=== PATIENT | male | born 1960 | race Asian ===

== ENCOUNTER 2025-08-30 15:28 | Inpatient (IN) ==
[2025-08-30 16:18] LABS: Hematocrit (blood only) 40.2 % (42.0-52.0); Hemoglobin 12.9 g/dl (14.0-18.0); Immature Granulocytes # (auto) 0.08 K/uL (0.01-0.20); Immature Granulocytes % (auto) 0.7 %; Mean Corpuscular Hemoglobin 27.0 pg (25.0-34.0); Mean Corpuscular Volume 84.3 fL (80.0-100.0); Platelet Count 347 K/uL (130-400); RDW Standard Deviation 39.5 fL (36.4-46.3); Red Blood Count 4.77 M/uL (4.70-6.10); White Blood Count 12.19 K/ul (4.8-10.8)
--- NOTE | 2025-08-30 16:19 | Emergency Department Note ---
Impression & Plan Acute appendicitis with appendiceal abscess, Leukocytosis ED Provider Note HISTORY OF PRESENT ILLNESS: Patient is a 65-year-old male presenting with right lower quadrant abdominal pain and an abnormal CT scan outpatient. Patient reports he has been having pain in his lower abdomen for the last 10 days. He reports that initially started in his lower abdomen in the bilateral lower quadrants 10 days ago. He reports over the last 10 days that it has become more localized to his right lower quadrant. His only abdominal surgical history was bilateral inguinal hernia repairs. He denies any nausea or vomiting. He reports that he has been unable to do his normal activities secondary to significant pain with movement. He denies any fevers. He reports that he thought it was similar pain to his previous bouts of diverticulitis, and he had spare ciprofloxacin and Flagyl from those diverticulitis episodes and started taking the ciprofloxacin and Flagyl, twice daily starting 5 days ago. He states he went to his primary care provider and had blood work and an outpatient CT scan performed today and he was called by his doctor to present to the emergency department due to his ruptured appendix. Last p.o. intake was at 9:30 AM today. Currently complaining of sharp pain in the right lower quadrant that he rates a 7 out of 10. ROS: as above PHYSICAL EXAM: Constitutional: Patient appears in no acute distress. HENT: Head: Normocephalic and atraumatic. Eyes: EOMI, PERRL Mouth/Throat: Mucous membranes moist. Neck: Trachea midline. Neck supple. Cardiovascular: RRR, No murmurs, rubs or gallops. Intact distal pulses. Pulmonary/Chest: No respiratory distress. Breath sounds clear and equal bilaterally. No wheezes or rales. Abdominal: Abdomen soft, no rebound or guarding. RLQ TTP Musculoskeletal: No edema, tenderness or deformity noted. Skin: Warm and dry. No rash, erythema, pallor or cyanosis Psychiatric: Appropriate mood and affect for situation. Neurological: Alert and keenly responsive. CN II-XII grossly intact, moving all extremities equally and fully. MDM: - Vitals signs stable. - History obtained via patient. History as above. - Chronic conditions affecting care: HTN - Differential diagnoses include, but are not limited to: Aortic aneurysm; appendicitis; diverticulitis; ureteral calculi; abdominal abscess - Order placed for continuous cardiac monitoring. At this time, monitor showed rate of 65 bpm with normal sinus rhythm, per my interpretation. - External medical records reviewed. CT abdomen/pelvis with IV and with oral contrast obtained through the [employer] system on 08/30/2025 at 1330 was reviewed. Impression was read as "appendicitis complicated by contained rupture of the appendix with right lower quadrant abscess. Mildly dilated common bile duct." - Laboratory workup interpreted by myself showed leukocytosis (WBC 12.19); stable electrolytes; normal lactate; normal lipase; normal AST/ALT - UA negative for infection - Discussed case with general surgeon on-call, Dr. Conde, at 16:16. He is requesting that the images be pushed through from the [employer] system. This was done and he was able to review the images. He recommended continuation of IV antibiotics. Reports no need for surgery at this time. - IV zosyn ordered. - Discussion was had with case sealer about patient's case and need for admission - Dr. Conde reports patietn will be admitted to his service - Patient admitted to general surgery service for further evaluation and management. ASSESSMENT AND PLAN: Diagnosis: acute appendicitis with appendiceal abscess; leukocytosis Plan: admit Past Med/Surg History Problem List (Updated 08/30/25 @ 17:08 by Minerva Dawkins MD) Leukocytosis (Acute) Acute appendicitis with appendiceal abscess (Acute) History of colon polyps Hernia, inguinal, right S/P left inguinal hernia repair (10/06/21) Left inguinal hernia repair. Dr. Duarte 10/06/2021 Colon cancer screening Encounter for pre-operative examination Left inguinal hernia Medical History History of hypertension Constipation History of bloody stools Surgical History H/O right inguinal hernia repair (03/28/25) H/O colonoscopy (09/15/21) History of left inguinal hernia repair (10/06/21) History of endoscopic sinus surgery Family History Father Cancer Social History Smoking Status: Never smoker Tobacco Type: Cigarettes Second Hand Exposure: No; Do You Dip or Chew Tobacco: No; Hx Alcohol Use: Yes Alcohol type: wine Alcohol Intake Frequency: 4 or More x per/Week Alcohol Intake Frequency Comment: daily 1-2 glasses Hx Substance Use: No Preferred Language: Tajik Communication Ability: Effective Plastics Scientist Required: Yes Beliefs That Will Affect Care: None marital status: Current Living Situation: Spouse current occupational status: employed How many Children do You have: 2 Feels Safe at Home: Yes during the past year weight has: remained stable Assistive Devices: Glasses Allergies Allergies Allergy/AdvReac Type Severity Reaction Status Date / Time No Known Allergies Allergy Verified 08/23/25 08:25 Home Meds Home Medications Medication Instructions Recorded Confirmed ascorbic acid (vitamin C) 500 mg 500 mg PO DAILY 09/01/21 08/23/25 tablet calcium carbonate (Calcium 500) 500 mg PO Q2D 09/01/21 08/23/25 multivitamin (Daily Multi-Vitamin 1 tab PO DAILY 09/01/21 08/23/25 tablet) latanoprost 0.005 % eye drops 1 drp OPB HS 03/20/25 08/23/25 lubiprostone 24 mcg capsule 24 mcg PO BID 03/20/25 08/23/25 (Amitiza) Previous Rx's Medication Instructions Recorded peg 3350-electrolytes 236 240 ml PO Q10M #4,000 mL 06/17/25 gram-22.74 gram-6.74 gram-5.86 gram solution (Golytely) Results & Data (ED) Vital Signs Vital Signs - 24 hr 08/30/25 15:33 08/30/25 15:57 08/30/25 16:43 Temperature 36.7 C Temperature Source Temporal Artery Scan Pulse Rate 70 61 Pulse Rate from SpO2 Sensor Respiratory Rate 20 20 Blood Pressure 137/84 115/75 Blood Pressure Mean 101 100 Pulse Oximetry 99 99 Oxygen Delivery Method Room Air Room Air Sepsis Recent Fever Within 48 Hours No Sepsis New/Unexplained Change in Mental Status No Sepsis Action Taken by Nursing No Action Required 08/30/25 16:43 08/30/25 16:48 08/30/25 16:50 Temperature Temperature Source Pulse Rate 64 64 Pulse Rate from SpO2 Sensor 64 Respiratory Rate 15 Blood Pressure 115/75 Blood Pressure Mean 100 Pulse Oximetry 98 Oxygen Delivery Method Sepsis Recent Fever Within 48 Hours Sepsis New/Unexplained Change in Mental Status Sepsis Action Taken by Nursing Laboratory Data 08/30/25 15:50 08/30/25 15:50 Lab Results 08/30/25 08/30/25 08/30/25 Range/Units 15:50 16:10 16:44 WBC 12.19 H (4.8-10.8) K/ul RBC 4.77 (4.70-6.10) M/uL Hgb 12.9 L (14.0-18.0) g/dl Hct 40.2 L (42.0-52.0) % MCV 84.3 (80.0-100.0) fL MCH 27.0 (25.0-34.0) pg MCHC 32.1 (32.0-36.0) g/dL RDW Std Deviation 39.5 (36.4-46.3) fL RDW Coeff of Day 12.8 (11.5-14.5) % Plt Count 347 (130-400) K/uL MPV 9.2 L (9.4-12.4) fL Immature Gran % (Auto) 0.7 % Neut % (Auto) 72.1 % Lymph % (Auto) 18.4 % [place] % (Auto) 7.6 % Eos % (Auto) 0.7 % Baso % (Auto) 0.5 % Neut # (Auto) 8.79 H (1.40-6.50) K/uL Lymph # (Auto) 2.24 (1.20-3.40) K/uL [place] # (Auto) 0.93 H (0.11-0.59) K/uL Eos # (Auto) 0.09 (0.00-0.50) K/uL Baso # (Auto) 0.06 (0.00-0.20) K/uL Immature Gran # (Auto) 0.08 (0.01-0.20) K/uL Sodium 132 L (136-145) mmol/L Potassium 4.1 (3.5-5.1) mmol/L Chloride 99 (98-107) mmol/L Carbon Dioxide 25 (21-32) mmol/L Anion Gap 8 (3-11) BUN 10 (6-23) mg/dl Creatinine 0.85 (0.6-1.4) mg/dl Est Cr Clr Drug Dosing 74.7 ml/min eGFR 97.64 BUN/Creatinine Ratio 11.8 (10-20) Glucose 100 H (70-99(Fasting)) mg/dl Lactate 0.8 (0.4-2.0) mmol/L Calcium 9.0 (8.6-10.3) mg/dl Total Bilirubin 0.7 (0.2-1.0) mg/dl AST 13 (13-39) U/L ALT 11 (7-52) U/L Alkaline Phosphatase 79 (34-104) U/L Total Protein 7.6 (6.0-8.3) gm/dl Albumin 3.7 (3.4-5.0) gm/dl Globulin 3.9 (2.5-4.0) gm/dl Albumin/Globulin Ratio 0.9 (0.9-2) Lipase 26 (11-82) U/L Urine Color Yellow Urine Appearance Clear (Clear) Urine pH 5.5 (4.5-7.5) Ur Specific [place] <= 1.005 (1.000-1.030) Urine Protein Negative (Negative) Urine Glucose (UA) Negative (Negative) Urine Ketones Negative (Negative) Urine Blood 1+ H (Negative) Urine Nitrite Negative (Negative) Urine Bilirubin Negative (Negative) Urine Urobilinogen Negative (Negative) Ur Leukocyte Esterase Negative (Negative) Urine RBC 0-2 (0-2) /hpf Urine WBC 6-10 H (0-5) /hpf Ur Epithelial Cells 0-2 (0-2) /hpf Urine Bacteria None Seen (None Seen) Urine Comment Administered Medications Discontinued Medications Piperacillin Sod/Tazobactam Sod (Zosyn) 4.5 gm in 100 mls @ 200 mls/hr IV NOW ONE; Protocol Stop: 08/30/25 16:40 Last Infusion: 08/30/25 17:26 Dose: Infused Documented By: Admin: 08/30/25 16:36 Dose: 200 mls/hr Documented By: KRC Discharge Plan Visit Data Chief Complaint: Abdominal Pain Stated Complaint: APPENDICITIS DCO REFERRAL ED Provider: Minerva Dawkins Discharge Problem: Acute appendicitis with appendiceal abscess, Leukocytosis Condition: Fair Forms Stand Alone Forms: [facility] Prescriptions Prescriptions: No Action peg 3350-electrolytes [Golytely] 236-22.74-6.74 -5.86 gram recon soln 240 ml PO Q10M Qty: 4000 0RF Rx Instructions: Take per split dose instructions ascorbic acid (vitamin C) 500 mg tablet 500 mg PO DAILY multivitamin [Daily Multi-Vitamin] Tablet 1 tab PO DAILY calcium carbonate [Calcium 500] 500 mg calcium (1,250 mg) tablet 500 mg PO Q2D latanoprost 0.005 % drops 1 drp OPB HS lubiprostone [Amitiza] 24 mcg capsule 24 mcg PO BID Referrals Referrals: Elina Guerrero MD [Primary Care Provider] -
[2025-08-30] MEDS: PIPERACILLIN/TAZOBACTAM 4.5 GM/100 ML BAG IV ONE (16:36)
[2025-08-30 16:56] LABS: Alanine Aminotransferase 11.0 U/L (7-52); Albumin Globulin Ratio 0.9 (0.9-2); Albumin Level 3.7 gm/dl (3.4-5.0); Alkaline Phosphatase 79.0 U/L (34-104); Anion Gap 8.0 (3-11); Bilirubin,Total 0.7 mg/dl (0.2-1.0); Blood Urea Nitrogen 10.0 mg/dl (6-23); Calcium 9.0 mg/dl (8.6-10.3); Carbon Dioxide 25.0 mmol/L (21-32); Chloride 99.0 mmol/L (98-107); Creatinine Clr Calc Pharmacy 74.7 ml/min; Globulin 3.9 gm/dl (2.5-4.0); Glucose 100.0 mg/dl (70-99(Fasting)); Lipase 26.0 U/L (11-82); Potassium 4.1 mmol/L (3.5-5.1); Sodium 132.0 mmol/L (136-145); Total Protein 7.6 gm/dl (6.0-8.3)
[2025-08-30 17:11] LABS: Appearance Urine Clear (Clear); Glucose Urine UA Negative (Negative)
[2025-08-30 17:34] LABS: Epithelial Cell Urine 0-2 /hpf (0-2)
--- NOTE | 2025-08-30 17:34 | History & Physical Report ---
Date of Service August 30, 2025 Assessment & Plan (1) Acute appendicitis with appendiceal abscess: Plan: Acute perforated appendicitis with abscess/phlegmon. Patient will be admitted for bowel rest and IV antibiotics Will discuss with IR on Tuesday, may need further imaging Discussed possibility of laparoscopic drainage versus attempted appendectomy if fails to improve or clinically worsens Would recommend interval appendectomy if response to nonoperative management. (2) H/O right inguinal hernia repair: (3) S/P left inguinal hernia repair: History of Present Illness Chief Complaint: Abdominal pain Primary Care Provider: Elina Guerrero MD Presents to the emergency department with 10 days of abdominal pain. Initially generalized pain, then migrated to the right lower quadrant. No similar episodes in the past. He did have some generalized abdominal pain a few months ago and was prescribed Cipro/Flagyl for possible diverticulitis, but the pain resolved and he never took these. He began to take these for the past few days. No fevers, was seen by PCP and CT scan was ordered and performed at [facility]. This showed a perforated appendicitis with a 4 x 2 cm abscess. He was referred to the emergency department. Prior open left and right inguinal hernias, most recently open right inguinal hernia by Dr. Clements in April. No other abdominal surgeries. Recent colonoscopy with some small benign polyps. He currently has some mild pain, but overall feels okay. No allergies, otherwise healthy. Allergies Allergy/AdvReac Type Severity Reaction Status Date / Time No Known Allergies Allergy Verified 08/23/25 08:25 Home Medications Medication Instructions Recorded Confirmed Type ascorbic acid (vitamin C) 500 mg 500 mg PO DAILY 09/01/21 08/23/25 History tablet calcium carbonate (Calcium 500) 500 mg PO Q2D 09/01/21 08/23/25 History multivitamin (Daily Multi-Vitamin 1 tab PO DAILY 09/01/21 08/23/25 History tablet) latanoprost 0.005 % eye drops 1 drp OPB HS 03/20/25 08/23/25 History lubiprostone 24 mcg capsule 24 mcg PO BID 03/20/25 08/23/25 History (Amitiza) peg 3350-electrolytes 236 240 ml PO Q10M #4,000 mL 06/17/25 08/23/25 Rx gram-22.74 gram-6.74 gram-5.86 gram solution (Golytely) Past Med/Surg History Problem List (Updated 08/30/25 @ 17:08 by Minerva Dawkins MD) Leukocytosis (Acute) Acute appendicitis with appendiceal abscess (Acute) History of colon polyps Hernia, inguinal, right S/P left inguinal hernia repair (10/06/21) Left inguinal hernia repair. Dr. Duarte 10/06/2021 Colon cancer screening Encounter for pre-operative examination Left inguinal hernia Medical History History of hypertension Constipation History of bloody stools Surgical History H/O right inguinal hernia repair (03/28/25) H/O colonoscopy (09/15/21) History of left inguinal hernia repair (10/06/21) History of endoscopic sinus surgery Family History Father Cancer Social History Smoking Status: Never smoker Tobacco Type: Cigarettes Second Hand Exposure: No; Do You Dip or Chew Tobacco: No; Hx Alcohol Use: Yes Alcohol type: wine Alcohol Intake Frequency: 4 or More x per/Week Alcohol Intake Frequency Comment: daily 1-2 glasses Hx Substance Use: No Preferred Language: Nauruan Communication Ability: Effective Janitorial Tech Required: Yes Beliefs That Will Affect Care: None marital status: Current Living Situation: Spouse current occupational status: employed How many Children do You have: 2 Feels Safe at Home: Yes during the past year weight has: remained stable Assistive Devices: Glasses Review of Systems Review of Systems: All systems reviewed & are unremarkable except as noted in HPI & below Physical Exam Constitutional: WD/WN, vitals as above Respiratory: normal respiratory effort, lungs clear to auscultation Cardiovascular: RRR, no murmur, no edema Gastrointestinal (Abdomen): Inspection/Auscultation: + abdominal surgical scar Percussion/Palpation: + abdomen tender (Mild tenderness to palpation in RLQ, no guarding or rebound) and abdomen soft; no guarding, abdomen not rigid and no hernia Results & Data Results & Data Vital Signs (Past 12 Hours) Vital Signs Temp Pulse Resp BP Pulse Ox O2 Del Method 08/30/25 16:50 64 08/30/25 16:48 64 15 98 08/30/25 16:43 115/75 08/30/25 16:43 115/75 08/30/25 15:57 61 20 99 Room Air 08/30/25 15:33 36.7 C 70 20 137/84 99 Room Air Laboratory Results Laboratory Results - last 24 hr 08/30/25 08/30/25 08/30/25 15:50 16:10 16:44 WBC 12.19 H RBC 4.77 Hgb 12.9 L Hct 40.2 L MCV 84.3 MCH 27.0 MCHC 32.1 RDW Std Deviation 39.5 RDW Coeff of Day 12.8 Plt Count 347 MPV 9.2 L Immature Gran % (Auto) 0.7 Neut % (Auto) 72.1 Lymph % (Auto) 18.4 [place] % (Auto) 7.6 Eos % (Auto) 0.7 Baso % (Auto) 0.5 Neut # (Auto) 8.79 H Lymph # (Auto) 2.24 [place] # (Auto) 0.93 H Eos # (Auto) 0.09 Baso # (Auto) 0.06 Immature Gran # (Auto) 0.08 Sodium 132 L Potassium 4.1 Chloride 99 Carbon Dioxide 25 Anion Gap 8 BUN 10 Creatinine 0.85 Est Cr Clr Drug Dosing 74.7 eGFR 97.64 BUN/Creatinine Ratio 11.8 Glucose 100 H Lactate 0.8 Calcium 9.0 Total Bilirubin 0.7 AST 13 ALT 11 Alkaline Phosphatase 79 Total Protein 7.6 Albumin 3.7 Globulin 3.9 Albumin/Globulin Ratio 0.9 Lipase 26 Urine Color Yellow Urine Appearance Clear Urine pH 5.5 Ur Specific [place] <= 1.005 Urine Protein Negative Urine Glucose (UA) Negative Urine Ketones Negative Urine Blood 1+ H Urine Nitrite Negative Urine Bilirubin Negative Urine Urobilinogen Negative Ur Leukocyte Esterase Negative Urine RBC Pending Urine WBC Pending Ur Epithelial Cells Pending Urine Bacteria Pending Urine Comment Diagnostic Findings CT scan personally viewed and interpreted and agree with the assessment of a perforated appendicitis with phlegmon/abscess approximately 4 x 2 cm in size. No free air. No bowel obstruction. Code Status & VTE Plan VTE Prophylaxis Plan VTE Prophylaxis will be ordered: Yes PG Care Time/CCT Total # of Minutes Spent Total Time Spent with Patient: Total time spent is greater than 50% in coordination of care (as documented) at patient's floor/unit and/or counseling patient: Coding Level of Care Code 51968 INT INP/OBS CARE 2MIN Diagnoses Acute appendicitis with appendiceal abscess K35.33 H/O right inguinal hernia repair Z98.890; Z87.19 S/P left inguinal hernia repair Z98.890; Z87.19
[2025-08-30] MEDS ORDERED: ONDANSETRON INJ 2 MG/ML 2 ML VIAL IV PRN (21:03)
[2025-08-30] MEDS ORDERED: diphenhydrAMINE 50 MG/ML VIAL IV PRN (21:03)
[2025-08-30] MEDS ORDERED: ACETAMINOPHEN 1,000 MG/100 ML VIAL IV PRN (21:03)
[2025-08-30] MEDS ORDERED: MoRPHine SULFATE 4 MG/ML 1 ML CARP\\VIAL IV PRN (21:03)
[2025-08-30] MEDS: KETOROLAC TROMETHAMINE 15 MG/ML VIAL IV PRN (21:31)
[2025-08-30] MEDS: HEPARIN SOD 5,000 UNIT/0.5 ML VIAL SQ SCH (21:31)
[2025-08-30] MEDS: LACTATED RINGER'S 1,000 ML IV SCH (21:39)
[2025-08-30] MEDS: metroNIDAZOLE 500 MG/100 ML BAG IV SCH (21:40)
[2025-08-30] MEDS: CIPROFLOXACIN / D5W 400 MG/200 ML BAG IV SCH (22:43)
[2025-08-31 06:47] LABS: Hematocrit (blood only) 34.3 % (42.0-52.0); Hemoglobin 11.4 g/dl (14.0-18.0); Immature Granulocytes # (auto) 0.05 K/uL (0.01-0.20); Immature Granulocytes % (auto) 0.8 %; Mean Corpuscular Hemoglobin 27.9 pg (25.0-34.0); Mean Corpuscular Volume 83.9 fL (80.0-100.0); Platelet Count 331 K/uL (130-400); RDW Standard Deviation 38.5 fL (36.4-46.3); Red Blood Count 4.09 M/uL (4.70-6.10); White Blood Count 6.00 K/ul (4.8-10.8)
[2025-08-31 07:22] LABS: Albumin Level 3.1 gm/dl (3.4-5.0); Anion Gap 8.0 (3-11); Bilirubin,Total 0.5 mg/dl (0.2-1.0); Calcium 8.6 mg/dl (8.6-10.3); Carbon Dioxide 24.0 mmol/L (21-32); Chloride 105.0 mmol/L (98-107); Potassium 3.7 mmol/L (3.5-5.1); Sodium 137.0 mmol/L (136-145)
[2025-08-31 07:28] LABS: Alanine Aminotransferase 8.0 U/L (7-52); Albumin Globulin Ratio 1.0 (0.9-2); Alkaline Phosphatase 62.0 U/L (34-104); Blood Urea Nitrogen 12.0 mg/dl (6-23); Creatinine Clr Calc Pharmacy 102.0 ml/min; Globulin 3.0 gm/dl (2.5-4.0); Glucose 96.0 mg/dl (70-99(Fasting)); Total Protein 6.1 gm/dl (6.0-8.3)
--- NOTE | 2025-08-31 11:54 | Surgery Progress Note ---
Date of Service August 31, 2025 Assessment & Plan (1) Acute appendicitis with appendiceal abscess: Plan: Acute perforated appendicitis with abscess/phlegmon. Continue IV antibiotics Advance to clear liquid diet Will discuss with IR on Tuesday, may need further imaging Discussed possibility of laparoscopic drainage versus attempted appendectomy if fails to improve or clinically worsens Would recommend interval appendectomy if good response to nonoperative management. (2) H/O right inguinal hernia repair: (3) S/P left inguinal hernia repair: Admission and Anticipated Discharge Date Admission Date: August 30, 2025 Subjective Admitted with perforated appendicitis with phlegmon/abscess approximately 4 cm in size. Feeling much better, still little bit of pain. Physical Exam Constitutional: WD/WN, vitals as above Respiratory: normal respiratory effort, lungs clear to auscultation Cardiovascular: RRR, no murmur, no edema Gastrointestinal (Abdomen): Inspection/Auscultation: + abdominal surgical scar Percussion/Palpation: + abdomen tender (Mild tenderness to palpation in RLQ, no guarding or rebound, improved) and abdomen soft; no guarding, abdomen not rigid and no hernia Results & Data Vital Signs (Past 12 Hours) Vital Signs Temp Pulse Resp BP Pulse Ox O2 Del Method 08/31/25 07:22 37.1 C 59 L 18 114/75 98 Room Air Laboratory Results Laboratory Results - last 24 hr 08/30/25 08/30/25 08/30/25 15:50 16:10 16:44 WBC 12.19 H RBC 4.77 Hgb 12.9 L Hct 40.2 L MCV 84.3 MCH 27.0 MCHC 32.1 RDW Std Deviation 39.5 RDW Coeff of Day 12.8 Plt Count 347 MPV 9.2 L Immature Gran % (Auto) 0.7 Neut % (Auto) 72.1 Lymph % (Auto) 18.4 [place] % (Auto) 7.6 Eos % (Auto) 0.7 Baso % (Auto) 0.5 Neut # (Auto) 8.79 H Lymph # (Auto) 2.24 [place] # (Auto) 0.93 H Eos # (Auto) 0.09 Baso # (Auto) 0.06 Immature Gran # (Auto) 0.08 Sodium 132 L Potassium 4.1 Chloride 99 Carbon Dioxide 25 Anion Gap 8 BUN 10 Creatinine 0.85 Est Cr Clr Drug Dosing 74.7 eGFR 97.64 BUN/Creatinine Ratio 11.8 Glucose 100 H Lactate 0.8 Calcium 9.0 Total Bilirubin 0.7 AST 13 ALT 11 Alkaline Phosphatase 79 Total Protein 7.6 Albumin 3.7 Globulin 3.9 Albumin/Globulin Ratio 0.9 Lipase 26 Urine Color Yellow Urine Appearance Clear Urine pH 5.5 Ur Specific [place] <= 1.005 Urine Protein Negative Urine Glucose (UA) Negative Urine Ketones Negative Urine Blood 1+ H Urine Nitrite Negative Urine Bilirubin Negative Urine Urobilinogen Negative Ur Leukocyte Esterase Negative Urine RBC 0-2 Urine WBC 6-10 H Ur Epithelial Cells 0-2 Urine Bacteria None Seen Urine Comment 08/31/25 06:22 WBC 6.00 RBC 4.09 L Hgb 11.4 L Hct 34.3 L MCV 83.9 MCH 27.9 MCHC 33.2 RDW Std Deviation 38.5 RDW Coeff of Day 12.5 Plt Count 331 MPV 9.2 L Immature Gran % (Auto) 0.8 Neut % (Auto) 57.2 Lymph % (Auto) 29.3 [place] % (Auto) 9.5 Eos % (Auto) 2.5 Baso % (Auto) 0.7 Neut # (Auto) 3.43 Lymph # (Auto) 1.76 [place] # (Auto) 0.57 Eos # (Auto) 0.15 Baso # (Auto) 0.04 Immature Gran # (Auto) 0.05 Sodium 137 Potassium 3.7 Chloride 105 Carbon Dioxide 24 Anion Gap 8 BUN 12 Creatinine 0.80 Est Cr Clr Drug Dosing 102.0 eGFR 99.44 BUN/Creatinine Ratio 15.0 Glucose 96 Lactate Calcium 8.6 Total Bilirubin 0.5 AST 11 L ALT 8 Alkaline Phosphatase 62 Total Protein 6.1 Albumin 3.1 L Globulin 3.0 Albumin/Globulin Ratio 1.0 Lipase Urine Color Urine Appearance Urine pH Ur Specific [place] Urine Protein Urine Glucose (UA) Urine Ketones Urine Blood Urine Nitrite Urine Bilirubin Urine Urobilinogen Ur Leukocyte Esterase Urine RBC Urine WBC Ur Epithelial Cells Urine Bacteria Urine Comment PG Care Time/CCT Total # of Minutes Spent Total Time Spent with Patient: Total time spent is greater than 50% in coordination of care (as documented) at patient's floor/unit and/or counseling patient: Coding Level of Care Code 99515 SUB INP/OBS CARE 2/35MIN Diagnoses Acute appendicitis with appendiceal abscess K35.33 H/O right inguinal hernia repair Z98.890; Z87.19 S/P left inguinal hernia repair Z98.890; Z87.19
[2025-09-01] MEDS ORDERED: INFLUENZA VACC TS2025-26(6m+)/PF (IIV3) 0.5mL Syr IM ONE (09:03)
[2025-09-01 09:25] LABS: Hematocrit (blood only) 37.4 % (42.0-52.0); Hemoglobin 12.0 g/dl (14.0-18.0); Immature Granulocytes # (auto) 0.07 K/uL (0.01-0.20); Immature Granulocytes % (auto) 1.0 %; Mean Corpuscular Hemoglobin 26.9 pg (25.0-34.0); Mean Corpuscular Volume 83.9 fL (80.0-100.0); Platelet Count 367 K/uL (130-400); RDW Standard Deviation 38.1 fL (36.4-46.3); Red Blood Count 4.46 M/uL (4.70-6.10); White Blood Count 7.01 K/ul (4.8-10.8)
--- NOTE | 2025-09-01 09:58 | Surgery Progress Note ---
Date of Service September 01, 2025 Assessment & Plan (1) Acute appendicitis with appendiceal abscess: Plan: Acute perforated appendicitis with abscess/phlegmon. Continue IV antibiotics Advance to full liquid diet if tolerates clear liquid diet for lunch Discussed possibility of laparoscopic drainage versus attempted appendectomy if fails to improve or clinically worsens Would recommend interval appendectomy if good response to nonoperative management. (2) H/O right inguinal hernia repair: (3) S/P left inguinal hernia repair: Admission and Anticipated Discharge Date Admission Date: August 30, 2025 Subjective Admitted with perforated appendicitis with phlegmon/abscess approximately 4 cm in size. Feeling much better. Minimal pain. Tolerated clear liquids, however felt a little gassy afterwards, did not take the tray this morning. Physical Exam Constitutional: WD/WN, vitals as above Respiratory: normal respiratory effort, lungs clear to auscultation Cardiovascular: RRR, no murmur, no edema Gastrointestinal (Abdomen): Inspection/Auscultation: + abdominal surgical scar Percussion/Palpation: + abdomen tender (Mild tenderness to palpation in RLQ, no guarding or rebound, improved) and abdomen soft; no guarding, abdomen not rigid and no hernia Results & Data Vital Signs (Past 12 Hours) Vital Signs Temp Pulse Resp BP Pulse Ox O2 Del Method 09/01/25 07:00 36.8 C 60 18 136/85 97 Room Air 08/31/25 23:47 37.0 C 58 L 18 134/83 96 Room Air Laboratory Results Laboratory Results - last 24 hr 09/01/25 09:07 WBC 7.01 RBC 4.46 L Hgb 12.0 L Hct 37.4 L MCV 83.9 MCH 26.9 MCHC 32.1 RDW Std Deviation 38.1 RDW Coeff of Day 12.5 Plt Count 367 MPV 9.1 L Immature Gran % (Auto) 1.0 Neut % (Auto) 62.6 Lymph % (Auto) 26.8 [place] % (Auto) 7.6 Eos % (Auto) 1.3 Baso % (Auto) 0.7 Neut # (Auto) 4.39 Lymph # (Auto) 1.88 [place] # (Auto) 0.53 Eos # (Auto) 0.09 Baso # (Auto) 0.05 Immature Gran # (Auto) 0.07 PG Care Time/CCT Total # of Minutes Spent Total Time Spent with Patient: Total time spent is greater than 50% in coordination of care (as documented) at patient's floor/unit and/or counseling patient: Coding Level of Care Code 49359 SUB INP/OBS CARE 2MIN Diagnoses Acute appendicitis with appendiceal abscess K35.33 H/O right inguinal hernia repair Z98.890; Z87.19 S/P left inguinal hernia repair Z98.890; Z87.19
[2025-09-01] MEDS ORDERED: Nursing to Pharmacy Communication SCH (22:15)
[2025-09-01 23:18] VITALS: O2SAT 96
[2025-09-02 06:33] LABS: Hematocrit (blood only) 34.7 % (42.0-52.0); Hemoglobin 11.7 g/dl (14.0-18.0); Immature Granulocytes # (auto) 0.06 K/uL (0.01-0.20); Immature Granulocytes % (auto) 0.8 %; Mean Corpuscular Hemoglobin 27.9 pg (25.0-34.0); Mean Corpuscular Volume 82.8 fL (80.0-100.0); Platelet Count 388 K/uL (130-400); RDW Standard Deviation 37.2 fL (36.4-46.3); Red Blood Count 4.19 M/uL (4.70-6.10); White Blood Count 7.49 K/ul (4.8-10.8)
[2025-09-02 07:09] LABS: Alanine Aminotransferase 7.0 U/L (7-52); Albumin Globulin Ratio 1.0 (0.9-2); Albumin Level 3.0 gm/dl (3.4-5.0); Alkaline Phosphatase 53.0 U/L (34-104); Anion Gap 8.0 (3-11); Bilirubin,Total 0.4 mg/dl (0.2-1.0); Blood Urea Nitrogen 6.0 mg/dl (6-23); Calcium 8.6 mg/dl (8.6-10.3); Carbon Dioxide 25.0 mmol/L (21-32); Chloride 107.0 mmol/L (98-107); Creatinine Clr Calc Pharmacy 106.0 ml/min; Globulin 2.9 gm/dl (2.5-4.0); Glucose 95.0 mg/dl (70-99(Fasting)); Potassium 3.7 mmol/L (3.5-5.1); Sodium 140.0 mmol/L (136-145); Total Protein 5.9 gm/dl (6.0-8.3)
[2025-09-02 08:05] VITALS: BP 142/89; PULSE 58; RESP 16; TEMP 98.4
--- NOTE | 2025-09-02 09:56 | Surgery Progress Note ---
Date of Service September 02, 2025 Assessment & Plan (1) Acute appendicitis with appendiceal abscess: Plan: Pt here with abdominal pain. outpt CT scan showed concern for perforated appendicitis w/ 4cm phlegmon WBC 7.4. vitals stable, afebrile pt clinically feels better. tolerating a diet, no n/v. pain improving discussed CT scan with IR today, they stated its not well formed and more phlegmon so no plans to drain today. recommended considering outpt CT scan to see if it matures in week or so if indiciated Will resume patient back on a diet Consideration to discharge on oral abx course possible Admission and Anticipated Discharge Date Admission Date: August 30, 2025 Supervising Physician Co-Signing Physician Notes Patient seen and examined, labs reviewed, agree with above. Admitted with perforated appendicitis with phlegmon/abscess. Responding to IV antibiotics. Pain is improving, minimal this morning. He has tolerated a full liquid diet. Reviewed with IR, feel this is more of a phlegmon than abscess. Minimal to no tenderness to palpation in the right lower quadrant. Afebrile with stable vi tals. WBC remains normal. Will advance to low fiber diet. Transition to oral antibiotics and discharge later this afternoon. Continue course of at least 2 weeks of antibiotics. He should have a CT scan of the abdomen and pelvis with IV and oral contrast prior to see me in the clinic prior to the antibiotics completing. Return precautions given, call with questions or concerns. Subjective Patient feeling better. Reports pain 2-3/10. Passing gas, small BMs. Tolerating fulls, no n/v. Physical Exam Physical Exam: awake/alert, no distress Gastrointestinal (Abdomen): Inspection/Auscultation: abdomen not distended Percussion/Palpation: abdomen soft; abdomen nontender Results & Data Vital Signs (Past 12 Hours) Vital Signs Temp Pulse Resp BP Pulse Ox O2 Del Method 09/02/25 08:05 98.4 F 58 L 16 142/89 H 96 Room Air 09/01/25 23:00 99.0 F 60 18 139/81 96 Room Air PG Care Time/CCT Total # of Minutes Spent Total Time Spent with Patient: Total time spent is greater than 50% in coordination of care (as documented) at patient's floor/unit and/or counseling patient: Coding Level of Care Code 73388 SUB INP/OBS CARE 12/08MIN Diagnoses Acute appendicitis with appendiceal abscess K35.33
--- NOTE | 2025-09-03 13:07 | Discharge Summary ---
Date of Service September 03, 2025 Admission HPI Per Admitting Provider Presents to the emergency department with 10 days of abdominal pain. Initially generalized pain, then migrated to the right lower quadrant. No similar episodes in the past. He did have some generalized abdominal pain a few months ago and was prescribed Cipro/Flagyl for possible diverticulitis, but the pain resolved and he never took these. He began to take these for the past few days. No fevers, was seen by PCP and CT scan was ordered and performed at [facility]. This showed a perforated appendicitis with a 4 x 2 cm abscess. He was referred to the emergency department. Prior open left and right inguinal hernias, most recently open right inguinal hernia by Dr. Clements in April. No other abdominal surgeries. Recent colonoscopy with some small benign polyps. He currently has some mild pain, but overall feels okay. No allergies, otherwise healthy. Principal Diagnosis perforated appendicitis Discharge Exam awake/alert, no distress Respiratory normal respiratory effort Gastrointestinal (Abdomen) Inspection/Auscultation: abdomen not distended Percussion/Palpation: abdomen soft; abdomen nontender Discharge Data Allergies Allergy/AdvReac Type Severity Reaction Status Date / Time No Known Allergies Allergy Verified 08/23/25 08:25 Consultations 08/30/25 17:08 Consult General Surgery Routine ED Decision to Admit Stat Hospital Course (1) Acute appendicitis with appendiceal abscess: This is a 65yM with no significant PMH who presented to the [facility] on 08/30 with abdominal pain and a CT a/p showering perforated appendicitis with 4cm phlegmon/abscess. The patient's WBC 12. Initially patient on bowel rest with IVF. He was started on IV abx (cipro/flagyl). Patient's WBC normalized during his stay and vitals remained stable without any fevers. His diet was slowly advanced as tolerated. When IR was in house they were asked to review patient's CT scan for possible aspiration/drainage of fluid collection. Given its smaller size and not well organized appearance, more compatible with a phlegmon, they deferred on draining it during this admission. On 09/02 the patient's wbc normal, pain much improved, and diet tolerated. He was stable for discharge to home with instructions to complete a course of oral abx. He was slated for an outpatient CT scan with follow up in 1 week to eval the collection to ensure it continued to improve. Total Time Total Time Spent Total Time Spent (In Minutes): 15 Discharge Plan Discharge Items Patient Disposition: Home - Self-Care Reason For Visit: PERFORATED APPENDICITIS WITH ABSCESS Discharge Diagnosis: perforated appendicitis Condition on Discharge: Fair Activity: Per Instructions section Lifting: Gradually increase as tolerated Bathing: No limitations Exercise/Sports: Gradually increase as tolerated Driving/Machine Use: no driving if taking any narcotics for pain Non-emergency contact: Surgeon Call non-emergency contact if: you have any medication questions, your pain is not controlled, you have a fever, your temperature is above 101.5, your wound has increased redness, your wound has increased drainage and your wound pain has increased Follow-up/Referrals: Rj Conde DO, FACS [Physician] - 09/12/25 9:00 am (Please call to schedule follow up in the office in about 10 days time. please have a CT scan performed the day prior to your appointment) Elina Guerrero MD [Primary Care Provider] - Diet: Low Fiber Addtl Attending Provider Instructions: SPECIAL CARE INSTRUCTIONS: * Please complete the full course of antibiotic prescribed you to * You may shower * No lifting greater than 10lbs. No strenuous exercise until cleared by surgeon. Light walking is accepted. * No driving while taking narcotic pain medication; wait at least 1 day * No drinking alcohol while taking narcotic pain medication' * Please undergo a CT scan the day prior to your appointment with Dr. Conde. You should get the CT scan in about 7-10 days then follow up with Dr. Conde the day after to review your results * May use Ibuprofen/Tylenol over the counter for pain as tolerated. Do not exceed 3grams of Tylenol per 24 hours * Expect some swelling and bruising. * Diet- you may resume your regular diet Call your doctor if: * Temperature above 101 degrees, nausea/vomiting, fever/chills * Pain not relieved by pain medicine ordered * There is increased drainage or redness from any incision * You have any unanswered questions or concerns [phone]. FOLLOW UP VISIT: If not already scheduled, please call the office for a follow-up visit. Office Pending Studies at Discharge: No Stand-Alone Forms: [email or web address], Smoking Cessation Medications and DC Order Prescriptions: New ciprofloxacin HCl 500 mg tablet 500 mg PO BID 12 Days Qty: 24 0RF metronidazole 500 mg tablet 500 mg PO Q8H 12 Days Qty: 36 0RF Discharge Orders: Discharge Order (Routine); Ordered 09/02/25 Ordered By: Heather Lindsey/Other Patient Handouts: Low-Fiber Diet Admission Data Admit Date/Time: 08/30/25 17:27 Attending Provider: Rj Conde Admit Provider: Rj Conde Primary Care Provider: Elina Guerrero Other Providers: Rj Conde Other Interventions: Discharge Summary Assessment (RN) Last Done: 09/02/25 13:38 Coding Level of Care Code 41328 IN/OBS DISCH 30 MIN/LESS Diagnoses Acute appendicitis with appendiceal abscess K35.33
== END 2025-09-02 15:32 | disposition home or self-care (01) | DRG 373 ==
LOC: ED 15:28 → 2N 17:27 → 3E 08-31 16:14